=== PATIENT | male | born 1955 | race Two or more races ===

== ENCOUNTER 2018-07-12 08:40 | Emergency (ER) | payer OTHER ==
[~2018-07-12] VITALS: Ht 190.5 cm; Wt 133.8 kg
[2018-07-12 08:44] VITALS: Ht 190.5 cm; Wt 133.8 kg
[2018-07-12 09:06] LABS: BASOPHIL % 0.3 % (0-2); PLATELET COUNT 149 x10^3mcL (130-400); RED CELL DISTRIBUTION WIDTH 13.9 % (11.5-14.5)
[2018-07-12 09:16] LABS: CALCIUM 8.8 mg/dL (8.5-10.1); CARBON DIOXIDE 31.3 mmol/L (21-32); CREATININE SERUM 1.3 mg/dL (0.7-1.3); POTASSIUM SERUM 3.7 mmol/L (3.5-5.1)
[2018-07-12 09:21] LABS: BILIRUBIN TOTAL 1.2 mg/dL (0.20-1.00); TOTAL PROTEIN, SERUM 7.2 g/dL (6.4-8.2)
[2018-07-12 09:25] LABS: ALBUMIN 2.9 g/dL (3.4-5.0)
[2018-07-12 17:58] VITALS: BP 139/77
== END 2018-07-12 17:58 | disposition home or self-care (01) ==
LOC: ED 08:40
PROVIDERS: Emergency Medicine
DX: K57.92 Diverticulitis of intestine, part unspecified, without perforation or abscess without bleeding (principal); J40 Bronchitis, not specified as acute or chronic; I10 Essential (primary) hypertension
CPT/HCPCS: 83880; 85378; J2543; J3490; J7030; Q0092; Q9967